=== PATIENT | male | born 1995 | race Caucasian/White ===

== ENCOUNTER 2017-01-28 00:41 | Emergency (ER) | payer SELFPAY ==
[~2017-01-28] VITALS: Ht 162.6 cm; Wt 77.0 kg
[2017-01-28 01:15] VITALS: BP 128/74
== END 2017-01-28 12:44 | disposition left against medical advice (07) ==
LOC: ER 12:44
DX: R11.2 Nausea with vomiting, unspecified (principal); Z53.21 Procedure and treatment not carried out due to patient leaving prior to being seen by health care provider